=== PATIENT | female | born 1940 | race African-American/Black ===

== ENCOUNTER 2018-09-07 21:02 | Emergency (ER) | payer MEDICARE, BC ==
[~2018-09-07] VITALS: Ht 160 cm; Wt 100.0 kg
[~2018-09-07 21:02] MED LIST: ADLT ASA LOW81 MG PO; ASPIRIN LOW DOS81 M2; CIPRO500 MG OR; FLEXERIL OR; HYDROCO/APAP1 TA9 PO; LEVOTHYROXIN75 MC1 PO; LEVOXYL88 MC1 OR; MAXZIDE-2537.5 MG/TA PO; NABUMETONE500 MG PO; PROAIR HFA IN; SINGULAIR10 MG PO; SYMBICORT 80-4.5MCG IN; SYMBICORT1 AE1 IN; SYNTHROID88 MCG PO; ULTRAM50 M1 OR
[2018-09-07] MEDS ORDERED: LOSARTAN POTASS50 MG PO (21:57)
[2018-09-07] MEDS ORDERED: SUCRALFATE1 GM PO (21:58)
[2018-09-07 21:59] LABS: HEMATOCRIT 40.8 % (37.0-47.0); HEMOGLOBIN 12.7 g/dl (12.0-16.0); IMMATURE GRANULOCYTES 0.4 % (0.0-5.0); MEAN CELL VOLUME 85.5 fL CALC (80.0-100.0); MEAN CORPUSCULAR HGB 26.6 pG CALC (26.0-32.0); MEAN CORPUSCULAR HGB CONC 31.1 g/L CALC (32.0-36.0); NEUT# 7.11 thou/uL (2.00-7.15); RED BLOOD COUNT 4.77 mill/uL (4.20-5.60); RED CELL DISTRI WIDTH 14.1 % (11.5-15.5)
[2018-09-07 22:00] LABS: URINE BILIRUBIN - DIPSTICK NEGATIVE (NEGATIVE); URINE BLOOD DIPSTICK NEGATIVE (NEGATIVE); URINE COLOR YELLOW; URINE GLUCOSE - DIPSTICK NEGATIVE (NEGATIVE); URINE KETONE TRACE mg/dL (NEGATIVE); URINE LEUK ESTERASE TRACE (NEGATIVE); URINE NITRITE - DIPSTICK NEGATIVE (Negative); URINE PROTEIN - DIPSTICK TRACE mg/dL (NEG-TRACE); URINE SPECIFIC GRAVITY >=1.030; URINE UROBILINOGEN - DIPSTICK 0.2 E.U./dL (0.2)
[2018-09-07 22:10] LABS: ALBUMIN 4.5 g/dL (3.2-5.0); ALKALINE PHOSPHATASE 74 u/l (38-126); AMYLASE 105 u/l (30-110); ANION GAP 15 (6-22 (CALC)); BILIRUBIN, TOTAL 0.4 mg/dL (0.0-1.4); BUN 17 mg/dL (8-23); BUN/CREATININE RATIO 21 (12-20 (CALC)); CARBON DIOXIDE 26 mmol/l (22-30); CHLORIDE 105 mmol/l (95-108); CREATININE 0.8 mg/dL (0.5-1.0); GFR > 60 ML/MIN (>=60 (CALC)); GFR FOR AFR.AMER. > 60 ML/MIN (>=60 (CALC)); LIPASE 59 u/l (23-300); POTASSIUM 3.7 mmol/l (3.5-5.1); SGOT/AST 18 u/l (9-36); SODIUM 143 mmol/l (137-146); TOTAL PROTEIN 8.3 g/dL (6.3-8.2)
[2018-09-07 22:22] LABS: MYOGLOBIN 49 ng/mL (0 - 62)
[2018-09-07] MEDS ORDERED: LORTAB 1010 MG PO (23:15)
[2018-09-07] MEDS ORDERED: ZOFRAN ODT4 MG PO (23:15)
[2018-09-07 23:26] VITALS: BP 135/63
== END 2018-09-07 23:43 | disposition home or self-care (01) ==
LOC: ED 21:02
PROVIDERS: Emergency Medicine
DX: N20.0 Calculus of kidney (principal); I10 Essential (primary) hypertension; R10.84 Generalized abdominal pain; R11.10 Vomiting, unspecified